=== PATIENT | male | born 1975 | race Caucasian/White ===

== ENCOUNTER 2018-08-17 02:58 | Emergency (ER) | payer MEDICAID, OTHER ==
[2018-08-17] MEDS: HYDROCODONE/APAP (5/325) TAB PO (05:21)
== END 2018-08-17 06:06 | disposition home or self-care (01) ==
LOC: FTE 02:58
DX: K08.89 Other specified disorders of teeth and supporting structures (principal)
CPT/HCPCS: 99283; Z7502